=== PATIENT | female | born 1965 | race Caucasian/White ===

== ENCOUNTER 2022-07-19 16:53 | Inpatient (IN) | payer OTHER, SELFPAY ==
[2022-07-19 16:53] VITALS: BP 141/82; PULSE 79; RESP 16; TEMP 36.5; O2SAT 95; BMI 28.9
--- NOTE | 2022-07-19 17:19 | W.ED.PSYCHS ---
HPI - Psych General: Stated Complaint: MHE Time Seen by Provider: 07/19/22 17:13 Source: patient Mode of arrival: ambulatory [facility] PFSH: Medical History (Updated 07/19/22 @ 15:12 by Richar Lyn MD) Anxiety Depression Hypertension Hypothyroidism Spondylolisthesis Surgical History (Updated 07/19/22 @ 14:32 by Richar Lyn MD) History of bilateral salpingo-oophorectomy (BSO) History of History of laparotomy removal of endometriosis History of total vaginal hysterectomy (TVH) Social History (Updated 07/19/22 @ 14:53 by Richar Lyn MD) Smoking and tobacco status: current every day smoker cigarettes [ Other cigarette details: 1/2 PPD x 6 months, 15PY] Alcohol intake: never Desire information about alcohol rehabilitation?: No Desire information about substance/drug rehabilitation?: No Lives independently: Yes Household members: spouse Marital status: Number of children: 2 Current occupational status: disabled Current gender identity: Female Female Reproductive History: Para: 2 Discharge Plan Discharge Condition: Stable Prescriptions: No Action glimepiride 4 mg tablet 4 mg PO BID [place] Thyroid 180 mg tablet 180 mg PO DAILY hydroxychloroquine 200 mg tablet 200 mg PO BID hydrocodone-acetaminophen 5-325 mg tablet 1 tab PO QID PRN methocarbamol 500 mg tablet 500 mg PO TID PRN losartan 100 mg tablet 100 mg PO DAILY albuterol sulfate 90 mcg/actuation HFA aerosol inhaler 2 puff inhalation Q6H PRN escitalopram oxalate [Lexapro] 10 mg tablet 10 mg PO DAILY Qty: 30 0RF carvedilol 6.25 mg tablet 6.25 mg PO BID PRN (Reason: htn) Qty: 90 0RF Rx Instructions: must administer with a meal/food amlodipine [Norvasc] 5 mg tablet 5 mg PO DAILY Qty: 30 0RF Coding Level of Care Code ED [employer] 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
[2022-07-19 17:49] LABS: Basophils % 0.4 %; Eosinophils # 0.2 10^3/uL (0.0-0.8); Eosinophils % 2.4 %; Hematocrit 45.5 % (37.0-47.0); Hemoglobin 15.3 g/dL (11.5-15.3); Lymphocytes # 5.6 10^3/uL (0.8-4.8); Lymphocytes % 56.3 %; Mean Corpuscular HGB Conc 33.6 g/dL (30.0-36.0); Mean Corpuscular Hemoglobin 30.1 pg (28.0-34.0); Mean Corpuscular Volume 89.6 fl (81-99); Monocytes # 0.6 10^3/uL (0.2-0.9); Monocytes % 6.2 %; Neutrophils # 3.46 10^3/uL (1.8-7.7); Neutrophils % 34.5 %; Nucleated Red Blood Cells % 0 %; Platelet Count 466 10^3/cmm (130-400); Red Blood Count 5.08 10^6/uL (4.1-5.3); Red Cell Distribution Width 13.3 % (12.1-15.1)
[2022-07-19 18:13] LABS: Acetaminophen 8.9 ug/mL (10-30); Alanine Aminotransferase 12 U/L (0-33); Albumin Level 3.8 g/dL (3.5-5.2); Alkaline Phosphatase 80 U/L (35-105); Anion Gap 13.5 (5-19); Aspartate Amino Transferase 13 U/L (0-32); Blood Urea Nitrogen 8 mg/dL (6-20); Calcium 9.3 mg/dL (8.5-10.5); Carbon Dioxide 28 mmol/L (22-29); Chloride 104 mmol/L (98-107); Globulin 3.2 g/dL (1.3-4.6); Glomerular Filtration Rate 73.9 mL/min (90-130); Glucose 53 mg/dL (65-115); Osmolality Calculated 290 mOsm/kg (285-295); Potassium 3.5 mmol/L (3.5-5.1); Sodium 142 mmol/L (136-145); Total Bilirubin 0.2 mg/dL (0.15-1.2)
[2022-07-19 18:19] LABS: Alcohol Level < 10 mg/dL (0-10); Salicylate < 0.3 mg/dL (3-10)
--- NOTE | 2022-07-19 18:39 | W.ED.PSYCHS ---
HPI - Psych General: Chief Complaint: Psychiatric Symptoms Stated Complaint: MHE Time Seen by Provider: 07/19/22 17:13 Source: patient Mode of arrival: ambulatory Limitations: no limitations History of Present Illness: 56-year-old female has a history of paranoid schizophrenia states over the last year she has been having some increased paranoia along with hallucinations she states that she believes FBI has been out to get her along with other things she denies being suicidal or homicidal she is able answer all my questions appropriately she does want to be admitted voluntarily. Associated symptoms: Reports auditory hallucinations Review of Systems Const: Denies: fever(s), chills, body aches or change in appetite Eyes: Denies: blurry vision or eye discomfort ENMT: Denies: throat pain or dental pain Card: Denies: chest pain Resp: Denies: dyspnea GI: Denies: abdominal pain, nausea, vomiting or diarrhea : Denies: dysuria Musc: Denies: neck pain or back pain Skin/Breast: Denies: rash Neuro: Denies: headache(s) Psych: Reports: auditory hallucinations Gary/Lymph: Denies: easy bruising All/Imm: Denies: urticaria PFSH ED PFSH: Medical History Anxiety Depression Hypertension Hypothyroidism Spondylolisthesis Surgical History History of bilateral salpingo-oophorectomy (BSO) History of History of laparotomy removal of endometriosis History of total vaginal hysterectomy (TVH) Social History Smoking and tobacco status: current every day smoker cigarettes [ Other cigarette details: 1/2 PPD x 6 months, 15PY] Alcohol intake: never Desire information about alcohol rehabilitation?: No Desire information about substance/drug rehabilitation?: No Lives independently: Yes Household members: spouse Marital status: Number of children: 2 Current occupational status: disabled Current gender identity: Female Female Reproductive History: Para: 2 Physical Exam Const: COMMON NORMALS: no acute distress, patient oriented x3 and healthy appearing HENMT: COMMON NORMALS: normocephalic and atraumatic HEAD & SCALP: normocephalic and atraumatic Eye: COMMON NORMALS: Equal, round and reactive pupils present and EOMs intact bilaterally PUPIL: Yes Equal, round and reactive pupils present Neck/C-Spine: COMMON NORMALS: full ROM and supple Chest: COMMONS NORMALS: normal inspection of the chest and normal palpation of entire chest wall Resp: COMMON NORMALS: normal respiratory effort, No retractions, No use of accessory muscles and clear to auscultation bilaterally AUSCULTATION: clear to auscultation bilaterally Cardio: COMMON NORMALS: regular rate, regular rhythm and No murmurs present (Cardio) RATE: regular rate RHYTHM: regular rhythm GI: COMMON NORMALS: Normal to inspection, nondistended, normoactive bowel sounds present, Soft to palpation, non-tender and no masses PALPATION: Yes Soft to palpation Extremity: COMMON NORMALS: normal to inspection and full ROM Neuro: COMMON NORMALS: patient oriented x3, moves all extremities and no focal motor deficits Psych: COMMON NORMALS: mental status grossly normal and cooperative THOUGHT CONTENT: Yes Hallucination(s) present Skin: COMMON NORMALS: no rashes or lesions noted and no wounds GENERAL SKIN EXAM: no rashes or lesions noted Course Vital Signs: Vital signs: Vital Signs Temperature 97.7 F 07/19/22 16:53 Pulse Rate 79 07/19/22 16:53 Respiratory Rate 16 07/19/22 16:53 Blood Pressure 141/82 07/19/22 16:53 Pulse Oximetry 95 07/19/22 16:53 Oxygen Delivery Me thod 07/19/22 16:53 MDM - Psych Medical Decision Making Patient presents here with paranoia along with acute psychosis. Patient here is voluntary she is not suicidal homicidal did speak to the psychiatrist she is medically cleared will admit to the psychiatric unit under voluntary basis Lab Data : 07/19/22 17:38 07/19/22 17:38 Laboratory Results WBC 10.0 10^3/uL (4.0-10.0) 07/19/22 17:38 RBC 5.08 10^6/uL (4.1-5.3) 07/19/22 17:38 Hgb 15.3 g/dL (11.5-15.3) 07/19/22 17:38 Hct 45.5 % (37.0-47.0) 07/19/22 17:38 MCV 89.6 fl (81-99) 07/19/22 17:38 MCH 30.1 pg (28.0-34.0) 07/19/22 17:38 MCHC 33.6 g/dL (30.0-36.0) 07/19/22 17:38 RDW 13.3 % (12.1-15.1) 07/19/22 17:38 Plt Count 466 10^3/cmm (130-400) H 07/19/22 17:38 MPV 9.0 fL (7.4-10.4) 07/19/22 17:38 Neut % (Auto) 34.5 % 07/19/22 17:38 Lymph % (Auto) 56.3 % 07/19/22 17:38 [place] % (Auto) 6.2 % 07/19/22 17:38 Eos % (Auto) 2.4 % 07/19/22 17:38 Baso % (Auto) 0.4 % 07/19/22 17:38 Neut # (Auto) 3.46 10^3/uL (1.8-7.7) 07/19/22 17:38 Lymph # (Auto) 5.6 10^3/uL (0.8-4.8) H 07/19/22 17:38 [place] # (Auto) 0.6 10^3/uL (0.2-0.9) 07/19/22 17:38 Eos # (Auto) 0.2 10^3/uL (0.0-0.8) 07/19/22 17:38 Baso # (Auto) 0.0 10^3/uL (0.0-0.1) 07/19/22 17:38 Nucleated RBC % (auto) 0 % 07/19/22 17:38 Nucleated RBCs # 0.0 /100WBC 07/19/22 17:38 Sodium 142 mmol/L (136-145) 07/19/22 17:38 Potassium 3.5 mmol/L (3.5-5.1) 07/19/22 17:38 Chloride 104 mmol/L (98-107) 07/19/22 17:38 Carbon Dioxide 28 mmol/L (22-29) 07/19/22 17:38 Anion Gap 13.5 (5-19) 07/19/22 17:38 BUN 8 mg/dL (6-20) 07/19/22 17:38 Creatinine 0.8 mg/dL (0.5-0.9) 07/19/22 17:38 GFR Calculation 73.9 mL/min (90-130) L 07/19/22 17:38 Glucose 53 mg/dL (65-115) L 07/19/22 17:38 Calculated Osmolality 290 mOsm/kg (285-295) 07/19/22 17:38 Calcium 9.3 mg/dL (8.5-10.5) 07/19/22 17:38 Total Bilirubin 0.2 mg/dL (0.15-1.2) 07/19/22 17:38 AST 13 U/L (0-32) 07/19/22 17:38 ALT 12 U/L (0-33) 07/19/22 17:38 Alkaline Phosphatase 80 U/L (35-105) 07/19/22 17:38 Total Protein 7.0 g/dL (6.6-8.7) 07/19/22 17:38 Albumin 3.8 g/dL (3.5-5.2) 07/19/22 17:38 Globulin 3.2 g/dL (1.3-4.6) 07/19/22 17:38 Salicylates < 0.3 mg/dL (3-10) L 07/19/22 17:38 Acetaminophen 8.9 ug/mL (10-30) L 07/19/22 17:38 Ethyl Alcohol < 10 mg/dL (0-10) 07/19/22 17:38 Discharge Plan Discharge Patient Disposition: Admitted As Inpatient Clinical Impression: Acute psychosis Condition: Stable Prescriptions: No Action glimepiride 4 mg tablet 4 mg PO BID [place] Thyroid 180 mg tablet 180 mg PO DAILY hydroxychloroquine 200 mg tablet 200 mg PO BID hydrocodone-acetaminophen 5-325 mg tablet 1 tab PO QID PRN methocarbamol 500 mg tablet 500 mg PO TID PRN losartan 100 mg tablet 100 mg PO DAILY albuterol sulfate 90 mcg/actuation HFA aerosol inhaler 2 puff inhalation Q6H PRN escitalopram oxalate [Lexapro] 10 mg tablet 10 mg PO DAILY Qty: 30 0RF carvedilol 6.25 mg tablet 6.25 mg PO BID PRN (Reason: htn) Qty: 90 0RF Rx Instructions: must administer with a meal/food amlodipine [Norvasc] 5 mg tablet 5 mg PO DAILY Qty: 30 0RF Coding Level of Care Code ED [employer] for Placido Atkinson
[2022-07-19 18:42] LABS: Add Urine Microscopic? NO; Charge for UA Resulting for Rev
[2022-07-19 18:50] LABS: Bilirubin Urine Neg (Negative); Blood Urine Neg (Negative); Glucose Urine UA Norm (Normal); Ketones Urine Negative (Negative); Leukocyte Esterase Urine Negative (Negative); Nitrate Urine Negative (Negative); Protein Urine Neg (Negative); Specific Gravity, Urine 1.005 (1.005-1.030); Urine Appearance Clear (CLEAR); Urine Color Yellow (Yellow); Urobilinogen Urine Norm (Negative); pH Urine 7 (5-7)
[2022-07-19 18:58] LABS: Amphetamines Screen Urine Negative (Negative); Barbiturates Screen Urine Negative (Negative); Benzodiazepines Screen Urine Positive (Negative); Cocaine Screen Urine Negative (Negative); Opiate Screen Urine Positive (Negative); PCP Screen Urine Negative (Negative); THC Screen Urine Negative (Negative)
[2022-07-19 22:00] VITALS: BP 169/94; PULSE 72; RESP 16; TEMP 36.4; O2SAT 93
--- NOTE | 2022-07-20 02:56 | PC.NURSE ---
home medication counted and placed in clear plastic bag with pt name and animal sticker it put in pixis. hydroxychloroquine sulfate 200mg -1tablet hydrocodone/tylenol 5/325mg -2 0.5 tablets colace 1 gel cap lorazepam 0.5mg -7 plus a 0.5 tablet all medication loose in bag. no prescription bottle found in belongings.
[2022-07-20 05:59] VITALS: BP 169/94; PULSE 72; RESP 16; TEMP 36.4; O2SAT 93
[2022-07-20] MEDS: amlodipine 5 mg Tablet PO ×2 (06:33→09:04)
--- NOTE | 2022-07-20 06:34 | PC.NURSE ---
pt manual bp 170/[address] Shah one time norvasc 5mg read back telephone order given at this time.
[2022-07-20 06:36] VITALS: BP 170/100; PULSE 90; RESP 16; TEMP 36.7; O2SAT 94
[2022-07-20] MEDS: hydroxychloroquine 200 mg Tablet PO ×2 (09:04→18:16)
[2022-07-20] MEDS: escitalopram 10 mg Tablet PO (09:04)
[2022-07-20] MEDS: losartan 50 mg Tablet 100 MG PO (09:04)
[2022-07-20] MEDS: thyroid 60 mg Tablet 180 MG PO (09:04)
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
[2022-07-20] MEDS: acetaminophen 325 mg Tablet 650 MG PO (11:11)
[2022-07-20] MEDS: ondansetron 4 MG Tablet PO ×2 (11:12→18:28)
[2022-07-20] MEDS: hyDROXYzine 25 mg Capsule 50 MG PO ×2 (13:38→20:19)
[2022-07-20 14:00] VITALS: BP 175/87; PULSE 76; RESP 17; TEMP 36.2; O2SAT 92
[2022-07-20] MEDS: OLANZapine 5 mg ODT PO (18:28)
[2022-07-20] MEDS: trazodone 50 mg Tablet PO (20:19)
[2022-07-20 22:00] VITALS: BP 175/87; PULSE 76; RESP 17; TEMP 36.2; O2SAT 92
[2022-07-20 22:04] LABS: Glucose Point of Care 129 mg/dL (70-110)
[2022-07-20] MEDS: ibuprofen 600 mg Tablet PO (22:05)
[2022-07-20 22:41] VITALS: BP 163/91; PULSE 73; RESP 17; TEMP 36.3; O2SAT 94
[2022-07-21 02:49] VITALS: BP 176/93
[2022-07-21] MEDS: cloNIDine 0.1 mg Tablet PO (02:49)
[2022-07-21] MEDS: acetaminophen 325 mg Tablet 650 MG PO ×2 (02:49→09:57)
--- NOTE | 2022-07-21 02:59 | PC.NURSE ---
Patient is C/O chest tightness and shoulder pain. Her B/P is 176/98. called gave her 0.1mg clonidine and 650mg Tylenol PO. Will reassess in 30min. for effectiveness.
[2022-07-21 06:00] VITALS: BP 163/96; PULSE 77; RESP 17; TEMP 36.5; O2SAT 96
[2022-07-21] MEDS: amlodipine 5 mg Tablet PO (08:40)
[2022-07-21] MEDS: thyroid 60 mg Tablet 180 MG PO (08:40)
[2022-07-21] MEDS: hydroxychloroquine 200 mg Tablet PO ×2 (08:40→18:26)
[2022-07-21] MEDS: escitalopram 10 mg Tablet PO (08:40)
[2022-07-21] MEDS: losartan 50 mg Tablet 100 MG PO (08:40)
[2022-07-21] MEDS: OLANZapine 5 mg ODT PO (09:48)
--- NOTE | 2022-07-21 10:04 | PC.NURSE ---
Patient denies SI/HI and AH/VH. Patient states her anxiety is at a 7/10. She says she is incredibly anxious and feels like she's in withdrawal although when she was admitted it was noted she hadn't taken her medications in months. She rocked back and forth throughout the assessment. Cooperative.
--- NOTE | 2022-07-21 12:38 | P.NPUPN_ITS ---
Subjective NPU Subjective: Patient presents today still being a fairly unuseful historian. She did however mention that she had some problems surrounding Ativan and had been on and off of it. Additionally we were able to identify her hypertension medications as her blood pressures have been running quite high. She had received a prescription for Ativan recently and some concerns related to her use or misuse and that leading to some kind of altered mental status was discussed and 0.5 mg p.o. twice daily as needed was initiated to see if that might assist in her thought clarity. Otherwise no evidence of her being on antipsychotic medication has been uncovered thus far. Mental Status Exam MSE Comments: This is an overweight white female with hospital scrubs on with adequate grooming and limited eye contact. No abnormal movements except for mild psychomotor retardation. Somewhat cooperative exam in mild distress. Speech was slightly decreased rate and volume. Mood described as fine, affect odd at times. Thought process linear and mostly organized. Thought content: Patient denied suicidal or homicidal ideation, no delusions reported but she appeared quite guarded, she denied auditory hallucinations but acknowledged them to previous practitioners. Attention concentration were limited and memory appeared more reliable but none formally tested. Alert and oriented x3. Insight and judgment are impaired, impulse control is limited. Vitals/I&O/Wt Last Vital Signs Temp 97.7 F 07/21/22 06:00 Pulse 77 07/21/22 06:00 Resp 17 07/21/22 06:00 BP 163/96 07/21/22 06:00 Pulse Ox 96 07/21/22 06:00 O2 Del Method 07/21/22 06:00 Weight last 48 hrs Weight 67.132 kg Data NPU : 07/19/22 17:38 07/19/22 17:38 A&P Assessment and plan (1) Acute psychosis: (2) Depression: (3) Anxiety: (4) Osteoarthritis: (5) Rheumatoid arthritis: (6) Type 2 diabetes mellitus: (7) Hypertension: (8) Hypothyroidism: (9) Spondylolisthesis: Plan This is a 56-year-old white female who presented to the medical community at [place] with some mental health history that she is currently not confirming with 2 encounters in the last 24 hours that identified psychosis with her currently denying any issues and being a resistant historian. 1. Continue current medication. We will attempt to locate history of an antipsychotic being prescribed and consider initiating. Started Ativan 0.5 mg p.o. twice daily as needed to see if that might impact her cognitive functioning. Restarted her home antihypertensives. 2. Continue 15-minute checks for safety. 3. Encourage individual, group and milieu therapies. 4. Explore whether addiction plays a role in her presentation. 5. Obtain collateral information. 6. Explore whether her medical comorbidities specifically the hypothyroid could be informing her presentation. Involuntary Hold Information 96 Hour Hold: 96 Hour Involuntary Admission: No Attestations NPU Medical Necessity Statement*: Inpatient hospitalization is medically necessary and the clinically appropriate intervention at this time. We will monitor/initiate medications and make changes as indicated. Likely to stay 3 to 5 days. Coding Level of Care Code Acute Dementia Program Director for [facility] Fwd Diagnoses Acute psychosis F23 Depression F32.A Anxiety F41.9 Osteoarthritis M19.90 Rheumatoid arthritis M06.9 Type 2 diabetes mellitus E11.9 Hypertension I10 Hypothyroidism E03.9 Spondylolisthesis M43.10
[2022-07-21] MEDS: haloperidol 5 mg Tablet PO (13:09)
[2022-07-21 14:00] VITALS: BP 164/88; PULSE 75; RESP 18; O2SAT 95
[2022-07-21] MEDS: ibuprofen 600 mg Tablet PO (15:49)
[2022-07-21] MEDS: diphenhydrAMINE 50 mg Capsule PO (16:43)
[2022-07-21] MEDS: carvedilol 25 mg Tablet PO (17:08)
[2022-07-21] MEDS: LORazepam 0.5 mg Tablet PO (18:26)
[2022-07-21 20:24] VITALS: BP 157/70; PULSE 71; RESP 16; O2SAT 99
[2022-07-22 06:00] VITALS: BP 176/91; PULSE 75; RESP 17; O2SAT 97
[2022-07-22] MEDS: carvedilol 25 mg Tablet PO ×2 (06:14→18:01)
[2022-07-22] MEDS: LORazepam 0.5 mg Tablet PO ×2 (06:14→14:31)
[2022-07-22] MEDS: losartan 50 mg Tablet 100 MG PO (08:09)
[2022-07-22] MEDS: amlodipine 5 mg Tablet PO (08:09)
[2022-07-22] MEDS: dilTIAZem ER (24HR) 180 mg Capsule 360 MG PO (08:09)
[2022-07-22] MEDS: thyroid 60 mg Tablet 180 MG PO (08:09)
[2022-07-22] MEDS: escitalopram 10 mg Tablet PO (08:09)
[2022-07-22] MEDS: hydroxychloroquine 200 mg Tablet PO ×2 (08:09→18:01)
[2022-07-22 08:26] LABS: Glucose Point of Care 165 mg/dL (70-110)
[2022-07-22] MEDS: insulin lispro 100 unit/1 mL SUBCUT ×2 (08:44→20:22)
--- NOTE | 2022-07-22 08:58 | W.PM.NPUPNS ---
Subjective NPU Subjective: Patient presents today reported that she did better on the Ativan. We discussed the possibility that this was impacting her because of her age. we agreed we will monitor for a couple of days to see if this manages her altered mental status. She denies any new or pressing issues. Mental Status Exam MSE Comments: This is an overweight white female with hospital scrubs on with adequate grooming and limited eye contact. No abnormal movements except for mild psychomotor retardation. Somewhat cooperative exam in mild distress. Speech was slightly decreased rate and volume. Mood described as a little better, affect odd at times. Thought process linear and mostly organized. Thought content: Patient denied suicidal or homicidal ideation, no delusions reported but she appeared quite guarded, she denied auditory hallucinations but acknowledged them to previous practitioners. Attention concentration were limited and memory appeared more reliable but none formally tested. Alert and oriented x3. Insight and judgment are impaired, impulse control is limited. Vitals/I&O/Wt Last Vital Signs Temp 97.7 F 07/21/22 06:00 Pulse 75 07/22/22 06:00 Resp 17 07/22/22 06:00 BP 176/91 07/22/22 06:00 Pulse Ox 97 07/22/22 06:00 O2 Del Method 07/21/22 06:00 Data NPU : 07/19/22 17:38 07/19/22 17:38 A&P Assessment and plan (1) Acute psychosis: (2) Depression: (3) Anxiety: (4) Osteoarthritis: (5) Rheumatoid arthritis: (6) Type 2 diabetes mellitus: (7) Hypertension: (8) Hypothyroidism: (9) Spondylolisthesis: Plan This is a 56-year-old white female who presented to the medical community at [place] with some mental health history that she is currently not confirming with 2 encounters in the last 24 hours that identified psychosis with her currently denying any issues and being a resistant historian. 1. Continue current medication. We will attempt to locate history of an antipsychotic being prescribed and consider initiating. Started Ativan 0.5 mg p.o. twice daily as needed to see if that might impact her cognitive functioning. Restarted her home antihypertensives. 2. Continue 15-minute checks for safety. 3. Encourage individual, group and milieu therapies. 4. Explore whether addiction plays a role in her presentation. 5. Obtain collateral information. 6. Explore whether her medical comorbidities could be informing her presentation. Involuntary Hold Information 96 Hour Hold: 96 Hour Involuntary Admission: No Attestations NPU Medical Necessity Statement*: Inpatient hospitalization is medically necessary and the clinically appropriate intervention at this time. We will monitor/initiate medications and make changes as indicated. Likely to stay 3 to 5 days. 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
[2022-07-22] MEDS: fluticasone nasal spray 16gm Btl 1 SPRAY NASAL ×2 (09:54→18:22)
[2022-07-22] MEDS: diphenhydrAMINE 50 mg Capsule PO ×3 (09:54→18:22)
[2022-07-22 12:31] LABS: Glucose Point of Care 101 mg/dL (70-110)
[2022-07-22 14:00] VITALS: BP 175/79; PULSE 79; RESP 20; TEMP 36.3; O2SAT 95
[2022-07-22 17:35] LABS: Glucose Point of Care 86 mg/dL (70-110)
[2022-07-22 19:52] LABS: Glucose Point of Care 278 mg/dL (70-110)
[2022-07-22 20:09] VITALS: BP 126/77; PULSE 70; RESP 16; TEMP 36.7; O2SAT 98
--- NOTE | 2022-07-23 03:09 | PC.NURSE ---
Patients Son (Brandt Sinclair) called (his Ph.# is [phone]) requesting that Dr. Shah call him to discuss situation leading up to his mothers [facility] admission. He was also wondering if a Neurological consult could be ordered to possibly address recent onset of her head tremor and memory loss. He would also like to discuss patients potential disposition.
[2022-07-23] MEDS: LORazepam 0.5 mg Tablet PO ×2 (03:34→17:58)
[2022-07-23 06:00] VITALS: BP 171/81; PULSE 73; RESP 16; TEMP 36.7; O2SAT 96
[2022-07-23 08:07] LABS: Glucose Point of Care 153 mg/dL (70-110)
[2022-07-23] MEDS: dilTIAZem ER (24HR) 180 mg Capsule 360 MG PO (08:09)
[2022-07-23] MEDS: escitalopram 10 mg Tablet PO (08:09)
[2022-07-23] MEDS: carvedilol 25 mg Tablet PO ×2 (08:09→17:58)
[2022-07-23] MEDS: hydroxychloroquine 200 mg Tablet PO ×2 (08:09→17:58)
[2022-07-23] MEDS: thyroid 60 mg Tablet 180 MG PO (08:09)
[2022-07-23] MEDS: losartan 50 mg Tablet 100 MG PO (08:09)
[2022-07-23] MEDS: amlodipine 5 mg Tablet PO (08:09)
[2022-07-23] MEDS: insulin lispro 100 unit/1 mL SUBCUT ×2 (08:44→20:06)
[2022-07-23] MEDS: fluticasone nasal spray 16gm Btl 1 SPRAY NASAL ×2 (09:31→22:39)
[2022-07-23] MEDS: diphenhydrAMINE 50 mg Capsule PO ×3 (09:33→22:05)
--- NOTE | 2022-07-23 09:33 | PC.NURSE ---
PRN BENADRYL 50 MG GIVEN PO PER PT C/O STATED ANXIETY
[2022-07-23 12:25] LABS: Glucose Point of Care 113 mg/dL (70-110)
[2022-07-23] MEDS: glimepiride 2 mg Tablet 4 MG PO ×2 (13:02→17:58)
[2022-07-23] MEDS: ibuprofen 600 mg Tablet PO (13:51)
[2022-07-23 14:00] VITALS: BP 146/80; PULSE 70; RESP 18; TEMP 36.5; O2SAT 99
--- NOTE | 2022-07-23 15:40 | P.NPUPN_ITS ---
Subjective NPU Subjective: Patient presents today seeming somewhat confused but otherwise no signs of clear psychosis. She continues to report feeling more calm and herself with the as needed doses of Ativan. Son called reporting some collateral information like to share including some information they feel suggestive of possible Lewy body disorder. We talked to him to find out what studies have been done to deal that conclusion. Otherwise no overt signs of perceptual disturbances. Mental Status Exam MSE Comments: This is an overweight white female with hospital scrubs on with adequate grooming and limited eye contact. No abnormal movements except for mild psychomotor retardation. Somewhat cooperative exam in mild distress. Speech was slightly decreased rate and volume. Mood described as a little better, affect odd at times. Thought process linear and mostly organized. Thought content: Patient denied suicidal or homicidal ideation, no delusions reported but she appeared less guarded, she denied auditory hallucinations but acknowledged them to previous practitioners. Attention concentration were borja ited and memory appeared more reliable but none formally tested. Alert and oriented x3. Insight and judgment are impaired, impulse control is limited. Vitals/I&O/Wt Last Vital Signs Temp 98.1 F 07/23/22 06:00 Pulse 73 07/23/22 06:00 Resp 16 07/23/22 06:00 BP 171/81 07/23/22 06:00 Pulse Ox 96 07/23/22 06:00 O2 Del Method 07/22/22 14:00 Weight last 48 hrs Weight 65.408 kg Data NPU : 07/19/22 17:38 07/19/22 17:38 A&P Assessment and plan (1) Acute psychosis: (2) Depression: (3) Anxiety: (4) Osteoarthritis: (5) Rheumatoid arthritis: (6) Type 2 diabetes mellitus: (7) Hypertension: (8) Hypothyroidism: (9) Spondylolisthesis: Plan This is a 56-year-old white female who presented to the medical community at [place] with some mental health history that she is currently not confirming with 2 encounters in the last 24 hours that identified psychosis with her currently denying any issues and being a resistant historian. 1. Continue current medication. We will attempt to locate history of an antipsychotic being prescribed and consider initiating. Started Ativan 0.5 mg p.o. twice daily as needed to see if that might impact her cognitive functioning. Restarted her home antihypertensives. 2. Continue 15-minute checks for safety. 3. Encourage individual, group and milieu therapies. 4. Explore whether addiction plays a role in her presentation. 5. Obtain collateral information. 6. Explore whether her medical comorbidities could be informing her presentation. Involuntary Hold Information 96 Hour Hold: 96 Hour Involuntary Admission: No Attestations NPU Medical Necessity Statement*: Inpatient hospitalization is medically necessary and the clinically appropriate intervention at this time. We will m onitor/initiate medications and make changes as indicated. Likely to stay 2-4 days. 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
[2022-07-23 17:01] LABS: Glucose Point of Care 82 mg/dL (70-110)
[2022-07-23] MEDS: acetaminophen 325 mg Tablet 650 MG PO (18:10)
[2022-07-23 19:49] LABS: Glucose Point of Care 212 mg/dL (70-110)
[2022-07-23 20:06] VITALS: BP 113/67; PULSE 70; RESP 16; TEMP 36.4; O2SAT 95
[2022-07-24] MEDS: hyDROXYzine 25 mg Capsule 50 MG PO (02:16)
[2022-07-24] MEDS: trazodone 50 mg Tablet PO (02:17)
--- NOTE | 2022-07-24 02:20 | PC.NURSE ---
Trazadone 50mg PO and vistaril 50mg PO given for sleep and anxiety.
[2022-07-24 06:00] VITALS: BP 174/96; PULSE 78; RESP 16; O2SAT 96
[2022-07-24] MEDS: LORazepam 0.5 mg Tablet PO ×2 (06:43→22:11)
[2022-07-24 07:31] VITALS: BP 174/96
[2022-07-24] MEDS: thyroid 60 mg Tablet 180 MG PO (07:31)
[2022-07-24] MEDS: losartan 50 mg Tablet 100 MG PO (07:31)
[2022-07-24] MEDS: carvedilol 25 mg Tablet PO ×2 (07:32→17:53)
[2022-07-24] MEDS: escitalopram 10 mg Tablet PO (07:32)
[2022-07-24] MEDS: dilTIAZem ER (24HR) 180 mg Capsule 360 MG PO (07:32)
[2022-07-24] MEDS: glimepiride 2 mg Tablet 4 MG PO ×2 (07:32→17:53)
[2022-07-24] MEDS: amlodipine 5 mg Tablet PO (07:33)
[2022-07-24] MEDS: fluticasone nasal spray 16gm Btl 1 SPRAY NASAL ×2 (07:33→17:54)
[2022-07-24] MEDS: hydroxychloroquine 200 mg Tablet PO ×2 (07:33→17:53)
[2022-07-24 07:58] LABS: Glucose Point of Care 102 mg/dL (70-110)
[2022-07-24] MEDS: ibuprofen 600 mg Tablet PO ×2 (08:47→15:03)
[2022-07-24] MEDS: diphenhydrAMINE 50 mg Capsule PO (10:10)
[2022-07-24 12:10] LABS: Glucose Point of Care 196 mg/dL (70-110)
[2022-07-24] MEDS: insulin lispro 100 unit/1 mL SUBCUT ×2 (12:30→19:54)
[2022-07-24] MEDS: acetaminophen 325 mg Tablet 650 MG PO (13:04)
--- NOTE | 2022-07-24 13:38 | W.PM.NPUPNS ---
Subjective NPU Subjective: Patient presents today reporting that she is feeling better and was much more cogent in her communication skills. We discussed the Ativan and she does report that she may have had some waxing and waning use of it followed by some overuse of it which likely led to be confusion that was observed which is seeming to disappear now. We discussed working with the social work team to get her some appointments with neurology but discussed the likelihood that this was in fact a withdrawal versus overuse delirium. Mental Status Exam MSE Comments: This is an overweight white female with hospital scrubs on with adequate grooming and limited eye contact. No abnormal movements except for mild psychomotor retardation. Somewhat cooperative exam in no acute distress. Speech was slightly decreased rate and volume. Mood described as a little better, affect congruent. Thought process linear and mostly organized. Thought content: Patient denied suicidal or homicidal ideation, no delusions reported but she appeared less guarded, she denied auditory hallucinations but acknowledged them to previous practitioners. Attention concentration were limited and memory appeared more reliable but none formally tested. Alert and oriented x3. Insight and judgment are improving, impulse control is improving. Vitals/I&O/Wt Last Vital Signs Temp 97.6 F 07/23/22 20:06 Pulse 78 07/24/22 06:00 Resp 16 07/24/22 06:00 BP 174/96 07/24/22 07:31 Pulse Ox 96 07/24/22 06:00 O2 Del Method 07/23/22 14:00 Weight last 48 hrs Weight 65.408 kg Data NPU : 07/19/22 17:38 07/19/22 17:38 A&P Assessment and plan (1) Acute psychosis: (2) Depression: (3) Anxiety: (4) Osteoarthritis: (5) Rheumatoid arthritis: (6) Type 2 diabetes mellitus: (7) Hypertension: (8) Hypothyroidism: (9) Spondylolisthesis: Plan This is a 56-year-old white female who presented to the medical community at [place] with some mental health history that she is currently not confirming with 2 encounters in the last 24 hours that identified psychosis with her currently denying any issues and being a resistant historian. 1. Continue current medication. We will attempt to locate history of an antipsychotic being prescribed and consider initiating. Started Ativan 0.5 mg p.o. twice daily as needed to see if that might impact her cognitive functioning. Restarted her home antihypertensives. 2. Continue 15-minute checks for safety. 3. Encourage individual, group and milieu therapies. 4. Explore whether addiction plays a role in her presentation. 5. Obtain collateral information. 6. Explore whether her medical comorbidities could be informing her presentation. Involuntary Hold Information 96 Hour Hold: 96 Hour Involuntary Admission: No Attestations NPU Medical Necessity Statement*: Inpatient hospitalization is medically necessary and the clinically appropriate intervention at this time. We will monitor/initiate medications and make changes as indicated. Likely to stay 1-3 days. Coding Level of Care Code Acute Career Services Manager for g Fwd Diagnoses Acute psychosis F23 Depression F32.A Anxiety F41.9 Osteoarthritis M19.90 Rheumatoid arthritis M06.9 Type 2 diabetes mellitus E11.9 Hypertension I10 Hypothyroidism E03.9 Spondylolisthesis M43.10
[2022-07-24 14:00] VITALS: BP 159/75; PULSE 67; RESP 20; TEMP 36.6; O2SAT 98
[2022-07-24 17:35] LABS: Glucose Point of Care 85 mg/dL (70-110)
[2022-07-24 19:37] LABS: Glucose Point of Care 237 mg/dL (70-110)
[2022-07-24 20:06] VITALS: BP 130/80; PULSE 58; RESP 16; TEMP 36.5; O2SAT 99
[2022-07-25 06:00] VITALS: BP 151/74; PULSE 76; RESP 17; TEMP 36.8; O2SAT 98
[2022-07-25 08:10] LABS: Glucose Point of Care 127 mg/dL (70-110)
[2022-07-25] MEDS: glimepiride 2 mg Tablet 4 MG PO ×2 (08:56→18:19)
[2022-07-25] MEDS: hydroxychloroquine 200 mg Tablet PO ×2 (08:56→18:19)
[2022-07-25] MEDS: dilTIAZem ER (24HR) 180 mg Capsule 360 MG PO (08:56)
[2022-07-25] MEDS: amlodipine 5 mg Tablet PO (08:56)
[2022-07-25] MEDS: carvedilol 25 mg Tablet PO ×2 (08:57→18:19)
[2022-07-25] MEDS: losartan 50 mg Tablet 100 MG PO (08:57)
[2022-07-25] MEDS: escitalopram 10 mg Tablet PO (08:58)
[2022-07-25] MEDS: fluticasone nasal spray 16gm Btl 1 SPRAY NASAL ×2 (09:01→18:19)
[2022-07-25] MEDS: thyroid 60 mg Tablet 180 MG PO (09:06)
[2022-07-25] MEDS: ibuprofen 600 mg Tablet PO (10:18)
[2022-07-25 12:22] LABS: Glucose Point of Care 122 mg/dL (70-110)
[2022-07-25 14:00] VITALS: BP 157/80; PULSE 57; RESP 18; TEMP 36.6; O2SAT 98
--- NOTE | 2022-07-25 14:50 | W.PM.NPUPNS ---
Subjective NPU Subjective: Patient presented today reporting that she is feeling better overall. We continue to discuss the likely impact of benzodiazepines in her mental status. We agree with talk to her family and look at her having appropriate follow-up as she continues to be absent any psychotic symptom clusters or clear signs of confusion or difficulties. Mental Status Exam MSE Comments: This is an overweight white female with hospital scrubs on with adequate grooming and limited eye contact. No abnormal movements except for mild psychomotor retardation. Somewhat cooperative exam in no acute distress. Speech was slightly decreased rate and volume. Mood described as better, affect congruent. Thought organized. Thought content: Patient denied suicidal or homicidal ideation, no delusions reported or noted, she denied auditory hallucinations but acknowledged them to previous practitioners. Attention concentration were limited and memory appeared more reliable but none formally tested. Alert and oriented x3. Insight and judgment are improving, impulse control is improving. Vitals/I&O/Wt Last Vital Signs Temp 98 F 07/25/22 14:00 Pulse 57 L 07/25/22 14:00 Resp 18 07/25/22 14:00 BP 157/80 07/25/22 14:00 Pulse Ox 98 07/25/22 14:00 O2 Del Method 07/25/22 14:00 Data NPU : 07/19/22 17:38 07/19/22 17:38 A&P Assessment and plan (1) Acute psychosis: (2) Depression: (3) Anxiety: (4) Osteoarthritis: (5) Rheumatoid arthritis: (6) Type 2 diabetes mellitus: (7) Hypertension: (8) Hypothyroidism: (9) Spondylolisthesis: Plan This is a 56-year-old white female who presented to the medical community at [place] with some mental health history that she is currently not confirming with 2 encounters in the last 24 hours that identified psychosis with her currently denying any issues and being a resistant historian. 1. Continue current medication. We will attempt to locate history of an antipsychotic being prescribed and consider initiating. Started Ativan 0.5 mg p.o. twice daily as needed to see if that might impact her cognitive functioning. Restarted her home antihypertensives. 2. Continue 15-minute checks for safety. 3. Encourage individual, group and milieu therapies. 4. Explore whether addiction plays a role in her presentation. 5. Obtain collateral information. 6. Explore whether her medical comorbidities could be informing her presentation. Involuntary Hold Information 96 Hour Hold: 96 Hour Involuntary Admission: No Attestations NPU Medical Necessity Statement*: Inpatient hospitalization is medically necessary and the clinically appropriate intervention at this time. We will monitor/initiate medications and make changes as indicated. Likely to stay 1-2 days. Coding Level of Care Code Acute Review Assistant for g Fwd Diagnoses Acute psychosis F23 Depression F32.A Anxiety F41.9 Osteoarthritis M19.90 Rheumatoid arthritis M06.9 Type 2 diabetes mellitus E11.9 Hypertension I10 Hypothyroidism E03.9 Spondylolisthesis M43.10
[2022-07-25 17:39] LABS: Glucose Point of Care 123 mg/dL (70-110)
[2022-07-25 20:01] LABS: Glucose Point of Care 205 mg/dL (70-110)
[2022-07-25] MEDS: insulin lispro 100 unit/1 mL SUBCUT (20:16)
[2022-07-25] MEDS: trazodone 50 mg Tablet PO (20:17)
[2022-07-25 20:19] VITALS: BP 130/73; PULSE 61; RESP 16; O2SAT 96
[2022-07-26] MEDS: diphenhydrAMINE 50 mg Capsule PO (02:39)
[2022-07-26 06:00] VITALS: BP 162/90; PULSE 66; RESP 16; TEMP 36.7; O2SAT 96
[2022-07-26 07:27] LABS: Glucose Point of Care 142 mg/dL (70-110)
[2022-07-26 07:39] VITALS: BP 158/88
[2022-07-26] MEDS: losartan 50 mg Tablet 100 MG PO (07:39)
[2022-07-26] MEDS: acetaminophen 325 mg Tablet 650 MG PO (07:39)
[2022-07-26] MEDS: carvedilol 25 mg Tablet PO (07:40)
[2022-07-26] MEDS: dilTIAZem ER (24HR) 180 mg Capsule 360 MG PO (07:40)
[2022-07-26] MEDS: amlodipine 5 mg Tablet PO (07:40)
[2022-07-26] MEDS: glimepiride 2 mg Tablet 4 MG PO (07:40)
[2022-07-26] MEDS: escitalopram 10 mg Tablet PO (07:40)
[2022-07-26] MEDS: hydroxychloroquine 200 mg Tablet PO (07:41)
[2022-07-26] MEDS: thyroid 60 mg Tablet 180 MG PO (07:41)
[2022-07-26] MEDS: fluticasone nasal spray 16gm Btl 1 SPRAY NASAL (07:41)
[2022-07-26] MEDS: insulin lispro 100 unit/1 mL SUBCUT (08:30)
--- NOTE | 2022-07-26 12:39 | P.NPUDS_ITS ---
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 and evaluating patient/reviewing data Coding Level of Care Code Acute Chg FW DC note Diagnoses Acute psychosis F23 Depression F32.A Anxiety F41.9 Osteoarthritis M19.90 Rheumatoid arthritis M06.9 Type 2 diabetes mellitus E11.9 Hypertension I10 Hypothyroidism E03.9 Spondylolisthesis M43.10
[2022-07-26 12:42] LABS: Glucose Point of Care 93 mg/dL (70-110)
[2022-07-26] MEDS: BuSPIRONE 10 mg Tablet 15 MG PO (13:02)
[2022-07-26 14:48] VITALS: BP 158/88
== END 2022-07-26 14:45 | disposition home or self-care (01) | DRG 885 ==
LOC: ER 20:16 → NP 20:25
PROVIDERS: Family Medicine; Admitting Provider Psychiatry & Neurology Psychiatry; Emergency Provider Emergency Medicine; Visit Provider Psychiatry & Neurology Psychiatry
DX: F20.0 Paranoid schizophrenia (principal); E03.9 Hypothyroidism, unspecified; E11.9 Type 2 diabetes mellitus without complications; M06.9 Rheumatoid arthritis, unspecified; G89.29 Other chronic pain; Z79.84 Long term (current) use of oral hypoglycemic drugs; Z79.891 Long term (current) use of opiate analgesic; F17.210 Nicotine dependence, cigarettes, uncomplicated; I10 Essential (primary) hypertension; M43.10 Spondylolisthesis, site unspecified
CPT/HCPCS: 36416; 80053; 80061; 80306; 80307; 81003; 82962; 83036; 84439; 84443; 85025; 96372; 97150; 97165; 99285; J1815; J3535; Q0162; Q0163

== ENCOUNTER → 2022-11-09 16:25 | Outpatient (BNVA) | payer OTHER, SELFPAY | PROVIDERS: PCP Family Medicine; Visit Provider Family Medicine | DX: E03.9 Hypothyroidism, unspecified (principal); I10 Essential (primary) hypertension; E11.9 Type 2 diabetes mellitus without complications; M06.9 Rheumatoid arthritis, unspecified; F20.9 Schizophrenia, unspecified; F41.1 Generalized anxiety disorder; F33.1 Major depressive disorder, recurrent, moderate | CPT/HCPCS: 84439; 84443 ==

== ENCOUNTER → 2023-01-03 12:31 | Outpatient (BNVA) | payer OTHER, SELFPAY | PROVIDERS: PCP Family Medicine; Visit Provider Specialist | DX: R29.90 Unspecified symptoms and signs involving the nervous system (principal) | CPT/HCPCS: 36415; 82550; 83516; 83519; 85651 ==

== ENCOUNTER 2023-01-22 15:02 | Outpatient (CLI) | payer OTHER, SELFPAY ==
--- NOTE | 2023-01-22 15:15 | MR_ITS ---
WS: [id number] MRI HEAD WITHOUT CONTRAST WITH ATTENTION TO THE ORBITS TECHNIQUE: Sagittal T1, T2 axial, T2 axial FLAIR, axial susceptibility weighted imaging, axial diffus ion weighted images, and coronal T2 images were obtained. High-resolution coronal T2 and pregadoliniu m T1 vertebral imaging was obtained. CLINICAL INFORMATION: R29.90 - Unspecified symptoms and signs involving the ner... COMPARISON: None. FINDINGS: Orbits are normal in appearance. Normal optic chiasm and optic nerves. Normal cavernous sin uses and Meckel's cave. Rectus muscles are symmetric and normal in appearance. RIGHT lateral rectus n ormal in appearance. No evidence of restricted diffusion to suggest acute ischemia. Ventricular system and basal cisterns are patent. Mild small vessel changes. Normal posterior fossa. Normal vascular flow voids at the skul l base. No extra-axial fluid collections. No evidence of mass or mass effect. A few tiny chronic lacunar infarcts in the LEFT greater than RIGHT cerebellum. Mild mucosal thickenin g in the paranasal sinuses. Mastoid air cells well aerated. Normal posterior nasopharynx and paraphar yngeal fat. MR/MR head orbits wo con 64584/[id number] IMPRESSION: 1. Normal optic chiasm and pituitary infundibulum. Normal optic nerves. 2. Rectus muscles are normal in appearance. Normal intraconal fat. Globes are normal in appearance. 3. Lateral rectus RIGHT orbit appears symmetric compared to the LEFT. 4. No restricted diffusion to suggest acute ischemia. 5. Minimal small vessel changes. Mild parenchymal volume loss. 6. Suggestion of a few tiny chronic lacunar infarcts in the cerebellum mariia gerard.
== END 2023-01-22 15:03 | disposition home or self-care (01) ==
PROVIDERS: PCP Family Medicine; Visit Provider Specialist
DX: R29.90 Unspecified symptoms and signs involving the nervous system (principal)
CPT/HCPCS: 70336; 70551

== ENCOUNTER → 2023-01-30 13:19 | Outpatient (BNVA) | payer OTHER, SELFPAY | PROVIDERS: PCP Family Medicine; Visit Provider Internal Medicine Rheumatology | DX: Z79.899 Other long term (current) drug therapy (principal); M19.90 Unspecified osteoarthritis, unspecified site | CPT/HCPCS: 36415; 72170; 73130; 73562; 80076; 82565; 85025; 85651; 86140; 86200 ==

== ENCOUNTER → 2023-02-15 16:30 | Outpatient (BNVA) | payer OTHER, SELFPAY | PROVIDERS: PCP Family Medicine; Visit Provider Family Medicine | DX: E11.9 Type 2 diabetes mellitus without complications (principal); E03.9 Hypothyroidism, unspecified; H53.2 Diplopia; H49.21 Sixth [abducent] nerve palsy, right eye; I10 Essential (primary) hypertension; F20.9 Schizophrenia, unspecified; M05.79 Rheumatoid arthritis with rheumatoid factor of multiple sites without organ or systems involvement | CPT/HCPCS: 80053; 80061; 83036; 84439; 84443 ==

== ENCOUNTER → 2023-07-27 16:15 | Outpatient (BNVA) | payer OTHER, SELFPAY | PROVIDERS: PCP Family Medicine; Visit Provider Family Medicine | DX: E03.9 Hypothyroidism, unspecified (principal); M06.9 Rheumatoid arthritis, unspecified | CPT/HCPCS: 83036; 84439; 84443 ==

== ENCOUNTER → 2024-07-03 15:48 | Outpatient (BNVA) | payer OTHER, SELFPAY | PROVIDERS: PCP Family Medicine; Visit Provider Family Medicine | DX: I10 Essential (primary) hypertension (principal); E11.9 Type 2 diabetes mellitus without complications; E03.9 Hypothyroidism, unspecified | CPT/HCPCS: 80053; 80061; 83036; 84439; 84443 ==

== ENCOUNTER → 2024-12-01 11:25 | Outpatient (BNVA) | payer BC, SELFPAY | PROVIDERS: PCP Family Medicine; Visit Provider Family Medicine | DX: E03.9 Hypothyroidism, unspecified (principal); I10 Essential (primary) hypertension; E11.9 Type 2 diabetes mellitus without complications | CPT/HCPCS: 80053; 80061; 84439; 84443 ==

== ENCOUNTER → 2024-12-08 15:55 | Outpatient (BNVA) | payer BC, SELFPAY | PROVIDERS: PCP Family Medicine; Visit Provider Internal Medicine Rheumatology | DX: Z79.899 Other long term (current) drug therapy (principal); M05.79 Rheumatoid arthritis with rheumatoid factor of multiple sites without organ or systems involvement | CPT/HCPCS: 36415; 83036 ==

== ENCOUNTER 2025-02-25 14:28 | Outpatient (CLI) | payer BC, SELFPAY ==
--- NOTE | 2025-02-25 14:37 | XR_ITS ---
WS: [id number] Thoracic spine, 3 views, 02/25/2025 Clinical Data: mid back pain Comparison: None. Findings: No compression fractures are seen. The disc heights are normal. There are anterior osteoarthritic spurs T5-T9. There is a slight dextroscoliosis of the lower thoracic spine. 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
[2025-02-25 15:41] LABS: Estmated Average Glucose 212
[2025-02-25 15:49] LABS: Alanine Aminotransferase 11 U/L (0-33); Albumin Level 4.2 g/dL (3.5-5.2); Alkaline Phosphatase 92 U/L (35-105); Anion Gap 17.3 (5-19); Aspartate Amino Transferase 12 U/L (0-32); Blood Urea Nitrogen 10 mg/dL (8-23); Calcium 9.4 mg/dL (8.5-10.5); Carbon Dioxide 25 mmol/L (22-29); Chloride 100 mmol/L (98-107); Free T4 Free Thyroxine 0.74 ng/dL (0.82-1.77); Globulin 2.9 g/dL (1.3-4.6); Glomerular Filtration Rate 85.4 mL/min (90-130); Glucose 317 mg/dL (65-115); Osmolality Calculated 297 mOsm/kg (285-295); Potassium 4.3 mmol/L (3.5-5.1); Sodium 138 mmol/L (136-145); Thyroid Stimulating Hormone 4.48 uIU/mL (0.27-4.20); Total Bilirubin 0.3 mg/dL (0.15-1.2); Total Protein 7.1 g/dL (6.6-8.7)
== END 2025-02-25 14:29 | disposition home or self-care (01) ==
PROVIDERS: PCP Family Medicine; Visit Provider Family Medicine
DX: M47.894 Other spondylosis, thoracic region (principal); E03.9 Hypothyroidism, unspecified; E11.9 Type 2 diabetes mellitus without complications; M81.0 Age-related osteoporosis without current pathological fracture
CPT/HCPCS: 36415; 72072; 80053; 83036; 84439; 84443

== ENCOUNTER 2025-04-07 14:37 | Outpatient (CLI) | payer BC, SELFPAY ==
--- NOTE | 2025-04-07 14:44 | XR_ITS ---
WS: [id number] Chest with left rib detail, 4 views, 04/07/2025 Clinical Data: R07.81 - Pleurodynia Comparison: None. Findings: The lungs show no nodules, masses, or effusions. The heart is normal. No pneumonia or pneumothorax is seen. The ribs are intact. No rib fractures seen. No subcutaneous emphysema is present. XR/XR ribs LT mn 3V w CXR1V [id number] Impression: Negative chest with left rib detail.
== END 2025-04-07 14:38 | disposition home or self-care (01) ==
PROVIDERS: PCP Family Medicine; Visit Provider Internal Medicine Rheumatology
DX: R07.81 Pleurodynia (principal); M06.9 Rheumatoid arthritis, unspecified
CPT/HCPCS: 71101